=== PATIENT | male | born 1975 | race Two or more races ===

== ENCOUNTER 2025-03-02 14:15 | Emergency (ER) | payer SELFPAY ==
[~2025-03-02] VITALS: Ht 175.3 cm; Wt 59.7 kg
[2025-03-02 14:17] VITALS: BP 155/78; PULSE 104; RESP 18; TEMP 97.8; O2SAT 95
[2025-03-02] MEDS ORDERED: AMOX500T3 PO (15:04)
--- NOTE | 2025-03-02 15:08 | ED.PDOC ---
Eye-HPI HPI Comments 49 year old male with no past medical history presents to the ED with a chief complaint of dental pain onset 2 days. Patient is seen by Dentist at [facility], called office this morning, was told to come to ED for antibiotics, will be seen in 5 days. He began experiencing dental pain about 2 days ago, last night noted facial swelling, worsened this morning. Has been taking Ibuprofen for pain, with intermittent relief of symptoms. No other symptoms or modifying factors present at this time. Denies fever chills Denies nausea vomiting diarrhea Denies sore throat cough congestion Denies chest pain shortness of breath Chief Complaint: Tooth Pain Time Seen by MD: 15:00 Reviewed Notes: Medications, Allergies Allergies: Coded Allergies: NO KNOWN ALLERGIES (Unverified , 03/02/25) Home Meds Active Scripts Amoxicillin Trihydrate (Amoxicillin) 500 Mg Tab, 1 TAB PO BID for 10 Days, #20 TAB 0 Refills Prov:MILY GARCIA Jessee JUAREZ 03/02/25 Information Source: Patient Mode of Arrival: Ambulatory Timing: Days Duration: Since onset Prehospital treatment: Treatment Past Medical History PAST MEDICAL HISTORY: Denies Surgical History: Denies all surgeries Family History Family History: Reviewed,noncontributory to illness, No family hx of Cancer, No family hx of DM, No family hx of Heart fadia, No family hx of HTN, No family hx ofKidney fadia, No family hx of Liver fadia, No family hx of Lung fadia, No family hx of Stroke Social History Smoker: Non-Smoker Alcohol: Denies ETOH Use Drugs: Denies Drug Use Lives In: Home All Other Systems: Reviewed and Negative (as per HPI) Physical Exam General Appearance: No Apparent Distress, Normal HEENT: TMs Normal, Other (visibe dental caries, no fluctuance, no visable discharge) Neck: Full Range of Motion, Non-Tender, Normal, Normal Inspection Respiratory: Chest Non-Tender, Lungs Clear, No Accessory Muscle Use, No Respiratory Distress, Normal Breath Sounds Cardiovascular: No Edema, No JVD, No Murmur, No Gallop, Normal Peripheral Pulses, Regular Rate/Rhythm Breast Exam: Deferred Gastrointestinal: No Organomegaly, Non Tender, No Pulsatile Mass, Normal Bowel Sounds, Soft Genitalia: Deferred Pelvic: Deferred Rectal: Deferred Extremities: No calf tenderness, Normal capillary refill, Normal inspection, Normal range of motion, Non-tender, No pedal edema Musculoskeletal : Apperance: Normal Neurologic: Alert, supervisor hide house II-XII nml as Tested, No Motor Deficits, Normal Affect, Normal Mood, No Sensory Deficits Cerebellar Function: Normal Reflexes: Normal Skin: Dry, Normal Color, Warm Lymphatic: No Adenopathy Was a procedure done? Was a procedure done?: No EENT DIFF Eye: Other X-Ray, Labs, Meds, VS Vital Signs Date Time Temp Pulse Resp B/P (MAP) Pulse Ox O2 Delivery O2 Flow Rate FiO2 03/02/25 14:17 97.8 104 18 155/78 95 97.8 Current Medications Medications (Trade) Dose Ordered Sig/Aury Route Start Time Stop Time Status Last Admin Ceftriaxone Sodium (Rocephin) 1,000 mg ONCE ONCE IM 03/02/25 15:15 03/02/25 15:16 DC 03/02/25 15:25 Ketorolac Tromethamine (Toradol Injection) 30 mg ONCE ONCE IM 03/02/25 15:15 03/02/25 15:16 DC 03/02/25 15:25 X-Ray, Labs, Meds, VS Comment 49 year old male with no past medical history presents to the ED with a chief complaint of dental pain onset 2 days. Patient arrives alert and oriented, ABC's intact, afebrile, vital signs stable, saturating well in room air Patient was given: Rocephin and Toradol. Tolerated medications with no adverse reaction. Dental Infection Afebrile, vitals within normal limits. Exam as above and airway fully patent and in no respiratory distress. The patient has no neck swelling, no dysphonia or hoarseness, no lymphadenopathy. No trismus or swollen tongue to suggest Hipolito's angina. No overt e/o peritonsillar abscess or retropharyngeal abscess. No overt e/o deep space infection; nontoxic appearing and tolerating PO. Non-focal neuro exam with low suspicion for Lemierres. No pain with percussion, low suspicion for periapical abscess. No mastoid tenderness so do not suspect mastoiditis and no pain with manipulation of ear to suggest otitis externa. Trial antibiotics with cautious return precautions discussed w/ full understanding. Patient is stable for discharge at this time. External notes reviewed. Test results and diagnostic imaging interpreted. All diagnostic findings, discharge care, education and instructions provided Follow-up with PCP in 2 to 3 days Patient verbalized understanding and agreed to treatment plan Vital signs stable, afebrile, no acute distress noted Patient ambulatory with strong steady gait Advised to return precautions for any new or worsening symptoms, return to ER immediately for re-evaluation Patient is aware that the purpose of this visit was for an acute medical emergency requiring emergent stabilization. Chronic conditions, including malignancies have not been ruled out. Patient is instructed to follow up with PCP as directed and discharge instructions for continued care and workup. If unable to arrange follow-up, patient is to return to the emergency department for reassessment. Patient (parent or legal guardian if applicable) was given verbal and written discharge instructions and acknowledges understanding. Time of 1ST Reevaluation: 15:30 Reevaluation 1ST: Improved Patient Education/Counseling: Diagnosis, Treatment Family Education/Counseling: No Family Present SEPSIS Sepsis Screen Date sepsis recognized/suspect: Mar 02, 2025 Time Sepsis recognized/suspect: 1420 Recent Procedure: No On Antibiotic Therapy: No Respiratory Rate >20: No Heart Rate >90: Yes Temp<36 C (96.8 F) or >38.3 C: No SBP <90 or MAP <65 mmHG: No New Acute Mental Status Change: No Is the patient on CPAP, BIPAP,: No Vital Signs Date Time Temp Pulse Resp B/P (MAP) Pulse Ox O2 Delivery O2 Flow Rate FiO2 03/02/25 14:17 97.8 104 18 155/78 95 97.8 Departure 1 Departure Time of Disposition: 15:03 Impression: Primary Impression: Dental caries Disposition: HOME / SELF CARE / HOMELESS Condition: Stable e-Prescriptions Amoxicillin Trihydrate (Amoxicillin) 500 Mg Tab 1 TAB PO BID for 10 Days, #20 TAB 0 Refills Prov: MILY GARCIA NP 03/02/25 Discharged With: Self Critical Care Note Critical Care Time?: No Stability Stability form required: No Heart Score Heart Score: Heart Score Response (Comments) Value History N/A 0 EKG N/A 0 Age N/A 0 Risk Factors N/A 0 Troponin N/A 0 Total 0 I personally scribed for MILY GARCIA NP ([email or web address]) on 03/02/25 at 15:08. Electronically submitted by Beverly Valdez ([email or web address]). MILY GARCIA NP Mar 02, 2025 15:08
[2025-03-02] MEDS: KETOROLAC TROMETH 30 MG/ML 1ML VIAL IM ONE (15:25)
[2025-03-02] MEDS: cefTRIAXone SOD 1,000 MG VL IM ONE (15:25)
== END 2025-03-02 15:30 | disposition home or self-care (01) ==
LOC: ER 14:15
DX: K02.9 Dental caries, unspecified (principal)
CPT/HCPCS: 96372; 99284; J0696; J1885